=== PATIENT | female | born 1965 | race Two or more races ===

== ENCOUNTER 2019-05-05 10:29 | Emergency (ER) | payer SELFPAY ==
[~2019-05-05] VITALS: Ht 165.1 cm; Wt 74.8 kg
[2019-05-05 10:45] VITALS: BP 151/102
--- NOTE | 2019-05-05 10:55 | NUR ---
SEEN ADN EXAMINED BY
--- NOTE | 2019-05-05 11:21 | NUR ---
PT IS WHEELED TO RADIOLOGY FOR XRAY.
--- NOTE | 2019-05-05 13:16 | NUR ---
Patient discharged to home in stable condition. Written and verbal after care instructions given. Patient verbalizes understanding of instruction.
[2019-05-06] MEDS ORDERED: METOPROLOL TARTRATE 25 MG TABLET ONE (15:14)
== END 2019-05-05 13:19 | disposition home or self-care (01) ==
LOC: ER 10:31
DX: M26.621 Arthralgia of right temporomandibular joint (principal); K58.9 Irritable bowel syndrome, unspecified; G43.909 Migraine, unspecified, not intractable, without status migrainosus; Z88.0 Allergy status to penicillin
CPT/HCPCS: 70100-TC

== ENCOUNTER 2024-12-08 09:42 | Emergency (ER) | payer MEDICARE, OTHER ==
[~2024-12-08] VITALS: Ht 157.5 cm; Wt 74.8 kg
[2024-12-08] MEDS ORDERED: ACETAMINOPHEN ES 500 MG TABLET ONE (10:26)
[2024-12-08] MEDS ORDERED: diphenhydrAMINE HCL 50 MG/ML VIAL ONE (10:26)
[2024-12-08] MEDS ORDERED: METOCLOPRAMIDE HCL 10 MG/2 ML VIAL ONE (10:26)
[2024-12-08] MEDS: IV NS 0.9% 1,000 ML BAG IV ONE (10:39)
[2024-12-08] MEDS: ACETAMINOPHEN ES 500 MG TABLET PO ONE (10:40)
[2024-12-08] MEDS: diphenhydrAMINE HCL 50 MG/ML VIAL IV ONE (10:40)
[2024-12-08] MEDS ORDERED: METO5TAB87 PO (10:56)
[2024-12-08] MEDS: METOCLOPRAMIDE HCL 10 MG/2 ML VIAL IV ONE (11:22)
[2024-12-08] MEDS ORDERED: KETOROLAC TROMETHAMINE INJ 30 MG/ML VIAL ONE (11:48)
[2024-12-08] MEDS: KETOROLAC TROMETHAMINE INJ 30 MG/ML VIAL IV ONE (11:57)
[2024-12-08 12:07] VITALS: BP 132/80; TEMP 98.5; O2SAT 96
== END 2024-12-08 12:07 | disposition home or self-care (01) ==
LOC: ER 09:58
DX: R51.9 Headache, unspecified (principal); K58.9 Irritable bowel syndrome, unspecified; Z88.0 Allergy status to penicillin
CPT/HCPCS: 99285; 96374; 70450; 96375; 96361; J1885; J1200; J2765; J7030